=== PATIENT | male | born 1955 | race Caucasian/White ===

== ENCOUNTER 2022-11-24 11:55 | Outpatient (REF) | payer MEDICARE, MEDICAID, SELFPAY ==
[2022-11-24 12:54] LABS: MANUAL DIFF FLAG NO
[2022-11-24 14:25] LABS: Basophils Percent Auto 0.3 % (0-2); Eosinophils Absolute Auto 0.1 X10*3/uL (0.0-0.4); Eosinophils Percent Auto 1.3 % (0-4); Hematocrit 45.6 % (42.0-52.0); Hemoglobin 14.6 g/dl (14.0-18.0); Imm Gran Abs Auto 0.05 X10*3/uL (0.00-0.03); Imm Gran Pct Auto 0.6 % (0.0-0.4); Lymphocytes Absolute Auto 3.5 X10*3/uL (1.2-4.9); Mean Corpuscular Hemoglobin 30.3 pg (27.0-33.0); Mean Corpuscular Volume 94.6 fL (80.0-98.0); Mean Platelet Volume 10.7 fL (9.4-12.4); Monocytes Absolute Auto 0.5 X10*3/uL (0.1-1.2); Neutrophils Absolute Auto 4.5 x10*3/uL (2.0-8.3); Neutrophils Percent Auto 51.8 % (45-73); Platelet Count 332 X10*3/uL (160-400); Red Blood Count 4.82 X10*6/uL (4.60-5.80); Red Cell Distribution Width 13.1 % (11.0-16.0); White Blood Count 8.7 X10*3/uL (4.8-10.8)
[2022-11-24 15:17] LABS: Alanine Aminotransferase 18 U/L (0-40); Albumin Level 4.2 g/dL (3.5-5.0); Alkaline Phosphatase 68 U/L (39-117); Anion Gap 11 (12-20); Aspartate Amino Transferase 22 U/L (5-37); Bilirubin Total 0.4 mg/dL (0.0-1.0); Blood Urea Nitrogen 25 mg/dL (9-16); Calcium 9.4 mg/dL (8.4-10.2); Carbon Dioxide 28 mmol/L (22-29); Chloride 106 mmol/L (96-108); Estimated Glomerular Filt Rate > 60; Glucose Random 87 mg/dL (60-115); Potassium 4.2 mmol/L (3.3-5.1); Sodium 141 mmol/L (135-145); Total Protein 7.2 g/dL (6.5-8.0)
== END 2022-11-24 11:56 | disposition home or self-care (01) ==
LOC: HO.LAB 11:55
PROVIDERS: PCP Emergency Medicine; Visit Provider Nurse Practitioner
DX: Z01.818 Encounter for other preprocedural examination (principal); J44.9 Chronic obstructive pulmonary disease, unspecified; N18.9 Chronic kidney disease, unspecified; F03.90 Unspecified dementia, unspecified severity, without behavioral disturbance, psychotic disturbance, mood disturbance, and anxiety; F25.9 Schizoaffective disorder, unspecified; Z83.71 Family history of colonic polyps
CPT/HCPCS: 36415; 80053; 85025; 99203

== ENCOUNTER 2022-11-24 11:55 | Outpatient (AMB) | payer MEDICAID, SELFPAY ==
[2022-11-24 12:03] VITALS: BP 136/58; PULSE 75; BMI 30.2
--- NOTE | 2022-11-24 12:03 | A.OFFVIS_ITS ---
Intake Vital Signs 11/24/22 12:03 Height 6 ft 1 in Weight 228 lb 13.437 oz BMI 30.2 BP 136/58 L Blood Pressure Location Rt brachial Position Sitting Pulse 75 Intake Visit Reasons: colonoscopy screening Intake Note: Patient presents to in office visit today as a new patient for colonoscopy screening. CC: Last colonoscopy about 10 years ago in [facility]. Patient c/o hoarseness. Denies other GI symptoms today. Conflicts Analyst Required: No Allergies No Known Allergies Allergy (Verified 11/24/22 12:07) HPI colonoscopy screening HPI Details 67-year-old male here for preprocedural meeting to discuss a screening colonoscopy. He is referred by Erik Bean of [facility]. 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 He seems to remember he had polyps. He has constipation and dyspepsia that are currently controlled by his primary care provider. He complains of chronic coarseness that likely is related to his years of smoking and COPD. There are no prior problems with anesthesia or sedation. His COPD causes him SOB with exertion but no acute exacerbation, no cardiac problems. He does have chronic kidney disease of an unknown stage since this was not specified in his history and we have no labs. I am sending in today for labs to try to clarify this for appropriate medication purposes. No ID problems. He says he had polyps removed 10 years ago, and his brother had polyps removed. [facility] Medical History Abnormal lower esophageal sphincter relaxation Surgical History H/O colonoscopy H/O left inguinal hernia repair Social History Alcohol intake: former Patient Tobacco Use Status: Former Tobacco user Non Cigarette Tobacco use how lon 1/2 years ago Use of substances other than those prescribed or required for medical reasons: No Review of Systems Const Denies fatigue, Denies fever(s), Denies night sweats, Denies poor appetite and Denies weight loss ENT Reports Normal hearing present, Denies dental pain, Denies dysphagia, Denies hearing loss, Reports hoarseness, Denies mouth pain, Denies odynophagia, Denies throat swelling, Denies tongue swelling and Reports other (Dentition adequate) Card Reports no additional complaints and Reports dyspnea on exertion Resp Reports dyspnea on exertion GI Denies abdominal pain, Denies melena, Denies bloating, Denies hematochezia, Reports constipation, Denies GI cramping, Denies dysphagia, Denies excessive flatus, Denies early satiety, Reports dyspepsia, Reports heartburn, Denies diarrhea, Denies nausea, Denies odynophagia, Denies vomiting and Denies hematemesis Skin/Breast Denies pruritus, Denies lesions, Denies rash and Denies jaundice Neuro Reports Normal hearing present and Denies Abnormal speech present Endo Denies fatigue Aller/Immun Denies throat swelling and Denies tongue swelling Physical Exam Vital Signs: Last Vital Signs Pulse 75 11/24/22 12:03 BP 136/58 L 11/24/22 12:03 BMI result Body Mass Index 30.2 Const General: cooperative, no acute distress, well developed and well groomed Nutritional Appearance: well nourished and obese Orientation/consciousness: oriented to person, oriented to place and oriented to time Limitations: No language barrier and other limitations HEENT Head: Yes normocephalic and Yes atraumatic Eyes General: appearance normal, both eyes and all related structures Pupils: Equal, round and reactive pupils present Neck Neck: Yes normal visual inspection and Yes no lymphadenopathy Thyroid: Thyroid normal Resp Effort & Inspection: normal respiratory effort and able to speak in complete sentences Auscultation: clear to auscultation bilaterally Cardio Rate: regular rate Rhythm: regular rhythm Heart sounds: Normal, physiologic split S2 sound present Peripheral pulses: radial pulses present and posterior tibial pulses present GI Inspection: No distended, No Abdominal panniculus present and Yes obesity Palpation (GI): Soft to palpation, nontender, no guarding, not rigid and No hepatosplenomegaly present Percussion: Yes normal to percussion Auscultation: normal bowel sounds Rectal Exam - Male: Yes deferred Abdomen image: 1. central line scar Back/Spine/Pelvis Back/spine/pelvis image: 1. surgical scars 2. 3. Skin General skin exam: no rashes or lesions noted, turgor normal, skin not dry, no jaundice, No spider nevi and no striae Rashes: no rashes Nails: normal Neuro General: oriented to person, oriented to place and oriented to time Cranial nerves: Yes Equal, round and reactive pupils present and Yes Normal hearing present Speech: No Abnormal speech present Extrem General: Yes normal to inspection, No clubbing, No cyanosis and No edema Psych Appearance: grossly normal and well kempt Mental Status: mental status grossly normal Speech and movement: Normal speech and movement present Affect: normal affect Attitude: cooperative Thought process: not confabulating and Loose association thought process present Thought content: Normal thought content present Insight: Limited insight present (Psych) Judgement: Limited judgement present (Psych) Assessment & Plan Assessment & Plan (1) Pre-op examination: Code(s): Z01.818 - Encounter for other preprocedural examination Plan: He says he had a prior colonoscopy at [facility] in [place]. He seems to remember he had polyps. He has constipation and dyspepsia that are currently controlled by his primary care provider. He complains of chronic coarseness that likely is related to his years of smoking and COPD. There are no prior problems with anesthesia or sedation. His COPD causes him SOB with exertion but no acute exacerbation, no cardiac problems. He does have chronic kidney disease of an unknown stage since this was not specified in his history and we have no labs. I am sending in today for labs to try to clarify this for appropriate medication purposes. No ID problems. He says he had polyps removed 10 years ago, and his brother had polyps removed. (2) Family history of polyps in the colon: Comment: Two brothers Code(s): Z83.71 - Family history of colonic polyps (3) COPD (chronic obstructive pulmonary disease): Code(s): J44.9 - Chronic obstructive pulmonary disease, unspecified (4) Chronic kidney disease: Code(s): N18.9 - Chronic kidney disease, unspecified (5) Dementia: Code(s): F03.90 - Unspecified dementia, unspecified severity, without behavioral disturbance, psychotic disturbance, mood disturbance, and anxiety (6) Schizoaffective disorder: Code(s): F25.9 - Schizoaffective disorder, unspecified Orders: Orders Comprehensive Met. Panel Today Z01.818 - Encounter for other preprocedural ex amination Complete Blood Count Auto Diff Today Z818 - Encounter for other preprocedural examination Colonoscopy - GI Use Only Today Z01.818 - Encounter for other preprocedural examination Medications: New peg 3350-electrolytes 236-22.74-6.74 -5.86 gram (Golytely) until fecal effluent is clear; do not exceed a total volume of 2,000 mL 240 m L PO Q10M 1 day 4,000 mL 0RF Z12.11 - Encounter for screening for malignant neoplasm of colon Coding Level of Care Code New Pt Level 3 (73260) Diagnoses Pre-op examination Z01.818 Family history of polyps in the colon Z83.71 COPD (chronic obstructive pulmonary disease) J44.9 Chronic kidney disease N18.9 Dementia F03.90 Schizoaffective disorder F25.9
== END 2022-11-24 12:58 | disposition home or self-care (01) ==
PROVIDERS: PCP Emergency Medicine; Visit Provider Nurse Practitioner
DX: Z01.818 Encounter for other preprocedural examination (principal); Z83.71 Family history of colonic polyps; J44.9 Chronic obstructive pulmonary disease, unspecified; N18.9 Chronic kidney disease, unspecified; F03.90 Unspecified dementia, unspecified severity, without behavioral disturbance, psychotic disturbance, mood disturbance, and anxiety; F25.9 Schizoaffective disorder, unspecified
CPT/HCPCS: 99203

== ENCOUNTER → 2023-03-02 11:05 | Day surgery (SDC) | payer MEDICARE, MEDICAID, SELFPAY ==
[2023-03-01 11:46] VITALS: BMI 30.6
--- NOTE | 2023-03-01 12:35 | HO.ANESPROP2 ---
Documented by User: Viviana Moya NP 03/01/23 12:36 HPI - Anesthesia Eval Consult details Narrative: 67yo M for Upper Endoscopy and Colonoscopy [facility] resident [facility] Active Problems Active Problems: All Active Problems (Updated 03/01/23 @ 11:04 by Elina Powell RN) Family history of polyps in the colon (Acute) Pre-op examination (Acute) Calcific tendinitis of shoulder (Acute) Functional dyspepsia (Acute) Constipation (Acute) Myopia (Acute) High cholesterol (Acute) History of alcohol abuse (Acute) Insomnia (Acute) Depression with anxiety (Acute) Schizoaffective disorder (Acute) Dementia (Acute) Chronic kidney disease (Acute) Obesity (Acute) Smoker (Acute) COPD (chronic obstructive pulmonary disease) (Acute) Past Medical History Medical History Asthma Hyperlipidemia Resting tremor Anemia Hoarseness of voice Cognitive impairment B12 deficiency Vitamin D deficiency Alcohol abuse Depression Schizoaffective disorder, bipolar type Elevated cholesterol Dementia CKD (chronic kidney disease) Obesity COPD (chronic obstructive pulmonary disease) Abnormal lower esophageal sphincter relaxation Surgical History Surgical History H/O colonoscopy H/O left inguinal hernia repair Social History Social History Alcohol intake: former Patient Tobacco Use Status: Former Tobacco user Are you DNR?: No Advance Directives: No Advance Directives Information Provided: Yes Nutrition Risks: No Nutritional Risk Meds Allergies Allergy/AdvReac Type Severity Reaction Status Date / Time No Known Allergies Allergy Verified 03/02/23 11:50 Home Medications Medication Instructions Recorded Confirmed Last Taken Type benzocaine 15 mg-menthol 3.6 mg 1 stanford mucous membrane Q2-4H PRN 11/24/22 03/01/23 Unknown History lozenges (Cepacol Sore Throat Nasal Congestion (benzocaine-menthol)) loperamide 2 mg capsule 2 mg PO Q8-12H PRN Diarrhea 11/24/22 03/01/23 Unknown History bisacodyl 10 mg rectal suppository 10 mg AR DAILY PRN Constipation 03/01/23 03/01/23 Unknown History cholecalciferol (vitamin D3) 1,250 1,250 mcg PO QMONTH 03/01/23 03/01/23 Unknown History mcg (50,000 unit) capsule divalproex 500 mg tablet,delayed 1,500 mg PO BEDTIME 03/01/23 03/01/23 Unknown History release donepezil 10 mg tablet 10 mg PO BEDTIME 03/01/23 03/01/23 Unknown History magnesium hydroxide 400 mg/5 mL 400 mg PO DAILY PRN Constipation 03/01/23 03/01/23 Unknown History oral suspension (Milk of Magnesia) sertraline 50 mg tablet 200 mg PO DAILY 03/01/23 03/01/23 03/02/23 History sodium phosphates 19 gram-7 118 ml AR DAILY PRN Constipation 03/01/23 03/01/23 Unknown History gram/118 mL enema (Fleet Enema) trazodone 100 mg tablet 100 mg PO BEDTIME 03/01/23 03/01/23 Unknown History Exam Exam Date and Time: March 01, 2023 1235 Height,Weight and Vital Signs: Height 6 ft 1 in Weight 105.233 kg Pertinent Lab Results Pertinent Lab Results: Laboratory Tests 11/24/22 12:52 WBC 8.7 Hgb 14.6 Hct 45.6 Plt Count 332 Sodium 141 Potassium 4.2 Chloride 106 Carbon Dioxide 28 BUN 25 H Creatinine 1.16 Assessment and Plan Assessment Anesthesia Assessment: Chart Reviewed Documented by User: Barry Carranza MD 03/02/23 15:18 [facility] Past Medical History Medical History Asthma Hyperlipidemia Resting tremor Anemia Hoarseness of voice Cognitive impairment B12 deficiency Vitamin D deficiency Alcohol abuse Depression Schizoaffective disorder, bipolar type Elevated cholesterol Dementia CKD (chronic kidney disease) Obesity COPD (chronic obstructive pulmonary disease) Abnormal lower esophageal sphincter relaxation Family History Family history of problems with anesthesia: No Surgical History Surgical History H/O colonoscopy H/O left inguinal hernia repair History of Problems with Anesthesia: No Social History Social History Alcohol intake: former Patient Tobacco Use Status: Former Tobacco user Are you DNR?: No Advance Directives: No Advance Directives Information Provided: Yes Nutrition Risks: No Nutritional Risk Meds Allergies Allergy/AdvReac Type Severity Reaction Status Date / Time No Known Allergies Allergy Verified 03/02/23 11:50 Home Medications Medication Instructions Recorded Confirmed Last Taken Type benzocaine 15 mg-menthol 3.6 mg 1 stanford mucous membrane Q2-4H PRN 11/24/22 03/01/23 Unknown History lozenges (Cepacol Sore Throat Nasal Congestion (benzocaine-menthol)) loperamide 2 mg capsule 2 mg PO Q8-12H PRN Diarrhea 11/24/22 03/01/23 Unknown History bisacodyl 10 mg rectal suppository 10 mg AR DAILY PRN Constipation 03/01/23 03/01/23 Unknown History cholecalciferol (vitamin D3) 1,250 1,250 mcg PO QMONTH 03/01/23 03/01/23 Unknown History mcg (50,000 unit) capsule divalproex 500 mg tablet,delayed 1,500 mg PO BEDTIME 03/01/23 03/01/23 Unknown History release donepezil 10 mg tablet 10 mg PO BEDTIME 03/01/23 03/01/23 Unknown History magnesium hydroxide 400 mg/5 mL 400 mg PO DAILY PRN Constipation 03/01/23 03/01/23 Unknown History oral suspension (Milk of Magnesia) sertraline 50 mg tablet 200 mg PO DAILY 03/01/23 03/01/23 03/02/23 History sodium phosphates 19 gram-7 118 ml AR DAILY PRN Constipation 03/01/23 03/01/23 Unknown History gram/118 mL enema (Fleet Enema) trazodone 100 mg tablet 100 mg PO BEDTIME 03/01/23 03/01/23 Unknown History Exam Airway Mallampati Class: III TM Dist: >3cm Neck ROM: Full Loose/Missing/Broken Teeth: Yes Assessment and Plan Assessment Anesthesia Assessment: Anesthesia Plan Discussed Final Anesthetic Review Family History of Problems with Anesthesia: No History of Problems with Anesthesia: No NPO: Yes ASA Class: III Final Preanesthetic Review: No Changes in Pt Med Stat, Meds/Allgs Chart Reviewed, Consent Obtained/Reviewed and Anes Risks/Benef Reviewed Patient Risk: Intermediate Procedure Risk: Low Anesthetic Plan Anesthetic Plan: MAC: Disposition: Standard PACU, Extended PACU, Inp. Admit - Standard Bed, Inp. Admit - IMC and Inp. Admit - ICU
--- NOTE | 2023-03-02 11:18 | MHC.SHP ---
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 High cholesterol Myopia Constipation Functional dyspepsia) History of Previous Operations: Relevant previous surgery/procedure and date(s) (inguinal hernia, colonoscopy) Allergies: Allergies Allergy/AdvReac Type Severity Reaction Status Date / Time No Known Allergies Allergy Verified 11/24/22 12:07 Review of Systems Sugical H&P ROS: Negative: Constitution, Cardiovascular, Respiratory, Neurological, Psychiatric, Hem-Onc, Allergic/Immunologic, Gastrointestinal, Genitourinary, Musculoskeletal, Integumentary, Endocrine and Eyes/Ears/Nose/Throat Exam Surgical H&P Exam: Normal: HEENT, Normal: Heart, Normal: Lungs, Normal: Extremities, Normal: Abdomen, Normal: Skin and Normal: Neurological Plan Diagnosis/Plan: Unchanged I have reviewed the history and physical and performed a pertinent physical examination on my patient. No changes have occurred unless specified. Time Spent With Patient Time: Total time managing care of this patient today ____ minutes.
[2023-03-02] MEDS: Lactated Ringers 1,000 ML 100 ML IVCONT (11:28)
--- NOTE | 2023-03-02 11:47 | P.OP_ITS ---
Operative Note Operative Note Date of Service: 03/02/23 Narrative: Operative Information Procedure Description: EGD, Colonoscopy Indication: EGD for hoarseness and colon screening Anesthesia: MAC FLEXIBLE TRANSORAL UPPER GASTROINTESTINAL ENDOSCOPY AND COLONOSCOPY PROCEDURE NOTE UPPER ENDOSCOPY Consent: Indications for the procedure and potential complications of bleeding, perforation, reaction to medications and missed diagnosis were discussed with the patient and informed consent was obtained. Instrument: Olympus GIF H 190 J mid size upper endoscope Monitoring: Vital signs and clinical assessment, continuous EKG monitoring, Pulse oximetry, Carbon Dioxide monitoring and blood pressure monitoring were done throughout the procedure. Procedure: The patient was placed in the left lateral decubitis position and pre-procedure medications were administered and a bite block was placed. The endoscope was inserted into the mouth and advanced under direct vision to the third part of duodenum. A careful inspection was made as the upper endoscope was withdrawn including a retroflexed examination of the proximal stomach; Findings and interventions are described below. Findings: Larynx:normal Esophagus: GE junction at 40 cm, diaphragm hiatus at 40 cm, esophagitis noted at GEJ, bx taken as well as from distal and proximal esophagus Stomach: Patchy erythema. Biopsies were obtained. Grade 2 flap valve on retroflexed examination of the cardia. Duodenum: Patchy erythema in bulb and second part Intervention: Biopsies as noted above COLONOSCOPY Instrument: Olympus variable stiffness ADULT scope 190L Colonoscopy Monitoring: Vital signs and clinical assessment, continuous EKG monitoring, Pulse oximetry, Carbon Dioxide monitoring and blood pressure monitoring were done throughout the procedure. Colon withdrawal time was 15 minutes. Procedure: The patient was placed in the left lateral decubitis position and pre-procedure medications were administered. After a digital rectal examination of the ano-rectum, the video colonoscope was inserted into the rectum and advanced through the colon to the cecum/TI. The colonoscope was slowly withdrawn in a retrograde panoramic fashion and the colon mucosa was carefully examined including a retroflexed view of the rectum. Findings and interventions are described below. Procedure Difficulty:easy, left sided lift use to get to cecum Findings: Terminal Ileum-normal Cecum:normal Ascending Colon: 6-9 mm sessile polyp removed with cold snare. 18-22 mm sessile polyp in distal ascending colon, lifted by injecting eleview then removed with hot snare with x 2 ultra clips applied to close defect, retrieved with net Transverse Colon -normal Descending Colon:normal Sigmoid Colon: normal Rectum: Retroflexion with small internal hemorrhoids, grade II Anorectum - normal Colon preparation: [place] Bowel Preparation Scale Right colon; 2 Transverse colon: 2 Left colon; 2 (0 = Unprepared colon segment with mucosa not seen due to solid stool that cannot be cleared. 1 = Portion of mucosa of the colon segment seen, but other areas of the colon segment not well seen due to staining, residual stool and/or opaque liquid. 2 = Minor amount of residual staining, small fragments of stool and/or opaque liquid, but mucosa of colon segment seen well. 3 = Entire mucosa of colon segment seen well with no residual staining, small fragments of stool or opaque liquid) Impression and Post Procedure Diagnosis: Endoscopy Findings: esophagitis gastritis duodenitis Colonoscopy Findings: polyps internal hemorrhoids Plan: Await Pathology results Repeat Colonoscopy in 1 year due to large polyp today or earlier if clinically indicated High fiber diet leaflet avoid straining at stool, epsom salts and sitz bath, anusol supps or cream recommend starting PPI e.g pantoprazole, 40 mg, he has reflux probably playing a role in his horseness Above findings were reviewed with the patient and relevant handouts were provided if indicated.
[2023-03-02 11:49] VITALS: BP 152/59; PULSE 79; RESP 18; TEMP 36.6; O2SAT 95
[2023-03-02 12:58] VITALS: BP 102/51; PULSE 59; RESP 14; TEMP 36.2; O2SAT 95
[2023-03-02 13:13] VITALS: BP 111/58; PULSE 69; RESP 16; O2SAT 92
[2023-03-02 13:28] VITALS: BP 139/60; PULSE 60; RESP 16; O2SAT 93
[2023-03-02 13:43] VITALS: BP 139/67; PULSE 60; RESP 16; TEMP 36.2; O2SAT 94
== END | disposition home or self-care (01) ==
PROVIDERS: PCP Emergency Medicine; Visit Provider Internal Medicine Gastroenterology
PROC: (CPT 43239; principal; 2023-03-02 12:50)
DX: K20.90 Esophagitis, unspecified without bleeding (principal); K29.70 Gastritis, unspecified, without bleeding; K29.80 Duodenitis without bleeding; R10.13 Epigastric pain; Z12.11 Encounter for screening for malignant neoplasm of colon; D12.2 Benign neoplasm of ascending colon; D37.4 Neoplasm of uncertain behavior of colon; K64.1 Second degree hemorrhoids; Z83.719 Family history of colon polyps, unspecified; N18.9 Chronic kidney disease, unspecified; E78.5 Hyperlipidemia, unspecified; J44.9 Chronic obstructive pulmonary disease, unspecified; F25.9 Schizoaffective disorder, unspecified; F03.90 Unspecified dementia, unspecified severity, without behavioral disturbance, psychotic disturbance, mood disturbance, and anxiety; Z87.891 Personal history of nicotine dependence; Z79.899 Other long term (current) drug therapy
CPT/HCPCS: 43239; 45381; 45385; 88305; 88342

== ENCOUNTER → 2023-03-02 11:05 | Outpatient (BNV) | payer MEDICARE, MEDICAID, SELFPAY | PROVIDERS: PCP Emergency Medicine; Visit Provider Internal Medicine Gastroenterology | DX: Z12.11 Encounter for screening for malignant neoplasm of colon (principal); D12.4 Benign neoplasm of descending colon; K64.1 Second degree hemorrhoids; K20.90 Esophagitis, unspecified without bleeding; K29.80 Duodenitis without bleeding; K29.70 Gastritis, unspecified, without bleeding | CPT/HCPCS: 43239; 45381; 45385 ==

== ENCOUNTER 2023-05-31 12:34 | Outpatient (AMB) | payer MEDICARE, MEDICAID, SELFPAY ==
--- NOTE | 2023-05-31 12:36 | A.OFFVIS_ITS ---
Intake Vital Signs 05/31/23 12:47 Height 6 ft 1 in Weight 242 lb 8.136 oz BMI 32.0 BP 133/66 Blood Pressure Location Lt brachial Position Sitting Pulse 80 Intake Visit Reasons: s/p EGD and [facility] Intake Note: Constantin presents in the office as a follow up EGD and COLO. CC: He states that he still have hoarsness in his throat Occupational Health Coordinator Required: No Allergies No Known Allergies Allergy (Verified 03/02/23 11:50) HPI s/p EGD and [facility] HPI Details Assessment & Plan (1) Pre-op examination: Code(s): Z01.818 - Encounter for other preprocedural examination Plan: He says he had a prior colonoscopy at [facility] in [place]. He seems to remember he had polyps. He has constipation and dyspepsia that are currently controlled by his primary care provider. He complains of chronic coarseness that likely is related to his years of smoking and COPD. There are no prior problems with anesthesia or sedation. His COPD causes him SOB with exertion but no acute exacerbation, no cardiac problems. He does have chronic kidney disease of an unknown stage since this was not specified in his history and we have no labs. I am sending in today for labs to try to clarify this for appropriate medication purposes. No ID problems. He says he had polyps removed 10 years ago, and his brother had polyps removed. (2) Family history of polyps in the colo n: Comment: Two brothers Code(s): Z83.71 - Family history of colonic polyps (3) COPD (chronic obstructive pulmonary disease): Code(s): J44.9 - Chronic obstructive pulmonary disease, unspecified (4) Chronic kidney disease: Code(s): N18.9 - Chronic kidney disease, unspecified (5) Dementia: Code(s): F03.90 - Unspecified dementia, unspecified severity, without behavioral disturbance, psychotic disturbance, mood disturbance, and anxiety (6) Schizoaffective disorder: Code(s): F25.9 - Schizoaffective disorder, unspecified Orders: Orders Comprehensive Met. Panel Today Z01.818 - Encounte r for other prepro cedural examinatio n Complete Blood Cou nt Auto Diff Today Z01.818 - Encounte r for other prepro cedural examinatio n Colonoscopy - GI U se Only Today Z01.818 - Encounte r for other prepro cedural examinatio n Medications: New peg 3350-electroly howie 236-22.74-6.74 -5.86 gram (Golyt bettina) until feca l effluent is haile r; do not exceed a total volume of 2 ,000 mL 240 mL PO Q10M 1 day 4,000 mL 0RF Z12.11 - Encounter for screening for malignant neoplas m of colon LABS: Laboratory Tests 11/24/22 12:52 WBC 8.7 Hgb 14.6 Hct 45.6 Plt Count 332 Estimated GFR > 60 Total Bilirubin 0.4 AST 22 ALT 18 Alkaline Phosphata se 68 EGD/COLONOSCOPY 03/02/23 Findings: Larynx:normal Esophagus: GE junction at 40 cm, diaphragm hiatus at 40 cm, esophagitis noted at GEJ, bx taken as well as from distal and proximal esophagus Stomach: Patchy erythema. Biopsies were obtained. Grade 2 flap valve on retroflexed examination of the cardia. Duodenum: Patchy erythema in bulb and second part Findings: Terminal Ileum-normal Cecum:normal Ascending Colon: 6-9 mm sessile polyp removed with cold snare. 18-22 mm sessile polyp in distal ascending colon, lifted by injecting eleview then removed with hot snare with x 2 ultra clips applied to close defect, retrieved with net Transverse Colon -normal Descending Colon:normal Sigmoid Colon: normal Rectum: Retroflexion with small internal hemorrhoids, grade II Anorectum - normal Impression and Post Procedure Diagnosis: Endoscopy Findings: esophagitis gastritis duodenitis Colonoscopy Findings: polyps internal hemorrhoids Plan: Await Pathology results Repeat Colonoscopy in 1 year due to large polyp today or earlier if clinically indicated High fiber diet leaflet avoid straining at stool, epsom salts and sitz bath, anusol supps or cream recommend starting PPI e.g pantoprazole, 40 mg, he has reflux probably playing a role in his horseness Received: 03/02/23 Diagnosis A. Duodenum, biopsy: Duodenal mucosa with focally blunted villi and mild features of chronic/non- specific duodenitis. B. Stomach, biopsy: Gastric antral/body mucosa with minimal chronic inactive gastritis; negative for H pylori, intestinal metaplasia and dysplasia. C. Gastroesophageal junction, biopsy: Squamocolumnar mucosa with mild chronic inflammation; negative for intestinal metaplasia and dysplasia. D. Esophagus, distal, biopsy: Squamous mucosa with no specific change; no columnar mucosa present. E. Esophagus, proximal, biopsy: Squamous mucosa with congestion, otherwise no specific change; no columnar mucosa present. F. Colon, ascending, polyp #1: Tubular adenoma; negative for high-grade dysplasia and carcinoma. G. Colon, ascending, polyp #2: Tubulovillous adenoma (cannot evaluate margin); negative for high- grade dysplasia and carcinoma TODAY'S VISIT The procedure needs to be repeated in 1 year r/t the very large polyp and the TVA. The procedure was well tolerated. The results were explained and the patient is agreeable to the follow-up interval as stated. The bowel pattern has returned to normal. Education was provided to tell any 1st degree relatives about their findings to be sure that they are screened by age 45. Educated that they will be put on a recall list when it is time for their repeat scope but should they move out of state or away from the hospital they will need to remember along with their primary to repeat the procedure in a timely fashion to avoid any adverse complications. He has from a long-term and I felt the paperwork and I am asking my schedulers to just book him for the a 1 year repeat appointment. He asks me on the way out who he should talk to about having a hoarse voice and I direct him to speak with his primary care provider as they can assess whether this is an acute problem or whether he needs a specialty referral to ear nose throat. He has a chronic history of smoking. [facility] Medical History (Updated 05/31/23 @ 14:38 by PEGGY Ritter) Pre-op examination Asthma Hyperlipidemia Resting tremor Anemia Hoarseness of voice Cognitive impairment B12 deficiency Vitamin D deficiency Alcohol abuse Depression Schizoaffective disorder, bipolar type Elevated cholesterol Dementia CKD (chronic kidney disease) Obesity COPD (chronic obstructive pulmonary disease) Abnormal lower esophageal sphincter relaxation Surgical History H/O colonoscopy H/O left inguinal hernia repair Social History Alcohol intake: former Patient Tobacco Use Status: Former Tobacco user Review of Systems Const Denies fatigue, Denies fever(s), Denies night sweats, Denies poor appetite and Denies weight loss ENT Reports Normal hearing present, Denies dental pain, Denies dysphagia, Denies hearing loss, Reports hoarseness, Denies mouth pain, Denies odynophagia, Denies throat swelling, Denies tongue swelling and Reports other (Dentition adequate) Card Reports no additional complaints Resp Reports no additional complaints GI Denies abdominal pain, Denies melena, Denies bloating, Denies hematochezia, Denies constipation, Denies GI cramping, Denies dysphagia, Denies excessive flatus, Denies early satiety, Denies heartburn, Denies diarrhea, Denies nausea, Denies odynophagia, Denies vomiting and Denies hematemesis Skin/Breast Denies pruritus, Denies lesions, Denies rash and Denies jaundice Neuro Reports Normal hearing present, Denies Abnormal speech present and Reports memory loss Psych Reports difficulty concentrating and Reports memory loss Endo Denies fatigue Aller/Immun Denies throat swelling and Denies tongue swelling Physical Exam Vital Signs: Last Vital Signs Pulse 80 05/31/23 12:47 BP 133/66 05/31/23 12:47 BMI result Body Mass Index 32.0 Const General: cooperative, no acute distress, well developed and well groomed Nutritional Appearance: well nourished and obese Orientation/consciousness: oriented to person, oriented to place and oriented to time Limitations: No language barrier and other limitations HEENT Head: Yes normocephalic and Yes atraumatic Eyes General: appearance normal, both eyes and all related structures Pupils: Equal, round and reactive pupils present Neck Neck: Yes normal visual inspection and Yes no lymphadenopathy Thyroid: Thyroid normal Resp Effort & Inspection: normal respiratory effort and able to speak in complete sentences Auscultation: clear to auscultation bilaterally Cardio Rate: regular rate Rhythm: regular rhythm Heart sounds: Normal, physiologic split S2 sound present Peripheral pulses: radial pulses present and posterior tibial pulses present GI Inspection: No distended, No Abdominal panniculus present and Yes obesity Palpation (GI): Soft to palpation, nontender, no guarding, not rigid and No hepatosplenomegaly present Percussion: Yes normal to percussion Auscultation: normal bowel sounds Rectal Exam - Male: Yes deferred Skin General skin exam: no rashes or lesions noted, turgor normal, skin not dry, no jaundice, No spider nevi and no striae Rashes: no rashes Nails: normal Neuro General: oriented to person, oriented to place and oriented to time Cranial nerves: Yes Equal, round and reactive pupils present and Yes Normal hearing present Speech: No Abnormal speech present Extrem General: Yes normal to inspection, No clubbing, No cyanosis and No edema Psych Appearance: grossly normal and well kempt Mental Status: mental status grossly normal Speech and movement: Normal speech and movement present Affect: normal affect Attitude: cooperative Thought process: Normal thought process present and not confabulating Thought content: Normal thought content present Insight: Poor insight present (Psych) Judgement: Poor judgement present (Psych) Assessment & Plan Assessment & Plan (1) Tubulovillous adenoma of colon: Comment: 05/2023 scope= 1 large TA and 1 tva repeat in 1 year Code(s): D12.6 - Benign neoplasm of colon, unspecified (2) Family history of polyps in the colon: Comment: Two brothers Code(s): Z83.71 - Family history of colonic polyps (3) Schizoaffective disorder: Code(s): F25.9 - Schizoaffective disorder, unspecified (4) Dementia: Code(s): F03.90 - Unspecified dementia, unspecified severity, without behavioral disturbance, psychotic disturbance, mood disturbance, and anxiety Plan The procedure needs to be repeated in 1 year r/t the very large polyp and the TVA. The procedure was well tolerated. The results were explained and the patient is agreeable to the follow-up interval as stated. The bowel pattern has returned to normal. Education was provided to tell any 1st degree relatives about their findings to be sure that they are screened by age 45. Educated that they will be put on a recall list when it is time for their repeat scope but collin uld they move out of state or away from the hospital they will need to remember along with their primary to repeat the procedure in a timely fashion to avoid any adverse complications. He has from a long-term and I felt the paperwork and I am asking my schedulers to just book him for the a 1 year repeat appointment. He asks me on the way out who he should talk to about having a hoarse voice and I direct him to speak with his primary care provider as they can assess whether this is an acute problem or whether he needs a specialty referral to ear nose throat. He has a chronic history of smoking. Coding Level of Care Code Est Pt Level 3 (06082) Diagnoses Tubulovillous adenoma of colon D12.6 Family history of polyps in the colon Z83.71 Schizoaffective disorder F25.9 Dementia F03.90
[2023-05-31 12:47] VITALS: BP 133/66; PULSE 80; BMI 32.0
== END 2023-05-31 13:08 | disposition home or self-care (01) ==
PROVIDERS: PCP Emergency Medicine; Visit Provider Nurse Practitioner
DX: D12.6 Benign neoplasm of colon, unspecified (principal); Z83.71 Family history of colonic polyps; F25.9 Schizoaffective disorder, unspecified; F03.90 Unspecified dementia, unspecified severity, without behavioral disturbance, psychotic disturbance, mood disturbance, and anxiety
CPT/HCPCS: 99213

== ENCOUNTER → 2023-05-31 12:34 | Outpatient (BNVA) | payer MEDICARE, MEDICAID, SELFPAY | PROVIDERS: PCP Emergency Medicine; Visit Provider Nurse Practitioner | DX: D12.6 Benign neoplasm of colon, unspecified (principal); F25.9 Schizoaffective disorder, unspecified; F03.90 Unspecified dementia, unspecified severity, without behavioral disturbance, psychotic disturbance, mood disturbance, and anxiety; Z83.718 Family history of other colon polyps | CPT/HCPCS: 99212 ==